=== PATIENT | male | born 1970 | race Caucasian/White ===

== ENCOUNTER 2016-09-23 15:09 | Emergency (ER) | payer MEDICARE, BC ==
[2016-09-23] MEDS ORDERED: ORPHENADRINE CITRATE 60MG/2ML VIAL IM ONE (15:55)
[2016-09-23] MEDS ORDERED: HYDROCODONE/APAP 7.5/325MG TABLET PO ONE (15:55)
[2016-09-23] MEDS ORDERED: PROMETHAZINE HCL 25 MG/ML VIAL IM ONE (15:55)
--- NOTE | 2016-09-23 16:00 | Emergency Department Record ---
History of Present Illness - General Chief Complaint: Headache Migraine Stated Complaint: HEADACHE Time Seen by Provider: 09/23/16 15:49 Source: Patient Mode of Arrival: Ambulatory Limitations: No limitations - History of Present Illness Initial Comments: 46 yo male presents with a migraine for 5 days. He has a history of similar migraines. He denies trauma, fever or new or different symptoms from his typical. He has some mild light sensitivity and nausea. He ran out of his [place]. Dr Ramirez is his PCP. MD Complaint: "Migraine" Onset/Timin -: Days(s) Onset Description: Gradual Location: Frontal Severity: Severe Severity scale (1-10): 9 Quality: Similar to previous headaches Consistency: Constant Improves With: Nothing Worsens With: Light Context: Other Associated Symptoms: Photophobia Treatments Prior to Arrival: None - Related Data Home Medications Medication Instructions Recorded Confirmed Last Taken Hydrocodone/Acetaminophen 10 mg PO ASDIR 06/30/16 09/20/16 09/20/16 [Hydrocodon-Acetaminophn 10-325] Morphine Sulfate [Morphine Sulfate 60 mg PO ASDIR 06/30/16 09/20/16 09/20/16 ER] Levothyroxine Sodium [Synthroid] 100 mcg PO DAILY 07/16/16 09/20/16 09/20/16 Lorazepam [Ativan] 1 mg PO BID 07/16/16 09/20/16 09/20/16 Quetiapine Fumarate [Seroquel Xr] 200 mg PO QHS PRN 07/16/16 09/20/16 09/20/16 Allergies Allergy/AdvReac Type Severity Reaction Status Date / Time diphenhydramine HCl Allergy Severe HYPERSENSIT Verified 09/20/16 23:31 [From Benadryl] IVITY amitriptyline HCl Allergy Intermediate HYPERSENSIT Verified 09/20/16 23:31 [From Elavil] IVITY ketorolac tromethamine Allergy Intermediate sweats Verified 09/20/16 23:31 [From Toradol] nortriptyline HCl Allergy Intermediate sweats Verified 09/20/16 23:31 [From Pamelor] Travel Screening - Travel/Exposure Within Last 30 Days Have you traveled within the last 30 days?: No Review of Systems Constitutional: Denies: Chills, Fever, Malaise, Weakness Eyes: Reports: Photophobia. Denies: Eye discharge, Eye pain, Vision change ENT: Denies: Congestion, Throat pain Respiratory: Denies: Cough, Dyspnea, Hemoptysis, Stridor, Wheezes Cardiovascular: Denies: Chest pain, Palpitations, Syncope Endocrine: Denies: Fatigue Gastrointestinal: Reports: Nausea, Vomiting. Denies: Abdominal pain, Diarrhea Genitourinary: Denies: Dysuria, Frequency, Hematuria Musculoskeletal: Reports: Back pain. Denies: Arthralgia, Joint swelling, Myalgia Skin: Denies: Bruising, Change in color, Rash Neurological: Reports: Headache. Denies: Numbness, Paresthesias, Seizure, Tingling, Tremors, Vertigo, Weakness Psychiatric: Denies: Anxiety Hematological/Lymphatic: Denies: Blood Clots, Easy bleeding, Easy bruising, Swollen glands Past Medical History - SOCIAL HISTORY Smoking Status: Current every day smoker Alcohol Use: None Drug Use: None - RESPIRATORY Hx Respiratory Disorders: Yes Hx Sleep Apnea: Yes Hx of CPAP: Yes - CARDIOVASCULAR Hx Cardio Disorders: No - NEURO Hx Neuro Disorders: Yes Hx CVA: Yes (2003) Hx Headaches: Yes Hx TIA: Yes Comment:: Closed head injury in 1994 and one in 1992 - GI Hx GI Disorders: Yes Hx Nausea/Vomiting: Yes Hx Ulcer: Yes - Hx Genitourinary Disorders: Yes Hx Kidney Stones: Yes - ENDOCRINE Hx Endocrine Disorders: Yes Hx Diabetes: No Hx Thyroid Disease: Yes - MUSCULOSKELETAL Hx Musculoskeletal Disorders: Yes Hx Arthritis: Yes Hx Back Injury: Yes - PSYCH Hx Psych Problems: Yes Hx Anxiety: Yes Hx Depression: Yes Hx Suicide Attempt: Yes - HEMATOLOGY/ONCOLOGY Hx Hematology/Oncology Disorders: Yes Hx Cancer: Yes (Lymphoma) Hx Chemotherapy: No Hx Radiation Therapy: Yes Comment:: lymphoma hx 2005 Family Medical History Any Significant Family History?: Yes Hx Alcohol Use: Father Hx Anxiety: Brother/Sister Hx Cancer: Father Hx Dementia: Grandparents Hx Depression: Brother/Sister, Grandparents Hx Diabetes: Grandparents Hx Heart Disease: Father Physical Exam - General General Appearance: Alert, Oriented x3, Cooperative, No acute distress Limitations: No limitations - Head Head exam: Atraumatic, Normocephalic, Normal inspection - Eye Eye exam: Normal appearance, PERRL, EOMI. negative: Conjunctival injection, Nystagmus, Periorbital swelling, Scleral icterus - ENT ENT exam: Normal exam Ear exam: Normal external inspection Nasal Exam: Normal inspection Mouth exam: Normal external inspection Teeth exam: Normal inspection Throat exam: Normal inspection - Neck Neck exam: Normal inspection, Full ROM. negative: Tenderness - Respiratory Respiratory exam: Normal lung sounds bilaterally. negative: Respiratory distress - Cardiovascular Cardiovascular Exam: Regular rate, Normal rhythm, Normal heart sounds - GI/Abdominal GI/Abdominal exam: Soft. negative: Guarding, Rebound, Rigid, Tenderness - Rectal Rectal exam: Deferred - exam: Deferred - Extremities Extremities exam: Normal inspection, Full ROM, Normal capillary refill. negative: Pedal edema, Tenderness - Back Back exam: Reports: Normal inspection, Full ROM. Denies: Muscle spasm, Rash noted, Tenderness - Neurological Neurological exam: Alert, CN II-XII intact, Normal gait, Oriented X3. negative : Altered, Motor sensory deficit - Psychiatric Psychiatric exam: Normal affect, Normal mood. negative: Agitated, Anxious - Skin Skin exam: Dry, Intact, Normal color, Warm Course Vital Signs 09/23/16 15:28 Temperature 98.1 F Pulse Rate 116 H Respiratory 16 Rate Blood Pressure 120/88 Pulse Ox 99 Disposition Disposition: Discharge Clinical Impression: Migraine Qualifiers: Migraine type: unspecified Status migrainosus presence: without status migrainosus Intractability: not intractable Qualified Code(s): G43.909 - Migraine, unspecified, not intractable, without status migrainosus Disposition: Home, Self-Care Condition: (1) Good Instructions: Migraine Headache (ED) Additional Instructions: Follow up with your doctor first of the week Rest and stay well hydrated Your [place] can be discussed with your doctor Forms: Patient Portal Access Time of Disposition: 16:00
== END 2016-09-23 16:30 | disposition home or self-care (01) ==
LOC: ER 15:09
DX: G43.909 Migraine, unspecified, not intractable, without status migrainosus (principal); R11.2 Nausea with vomiting, unspecified; H53.149 Visual discomfort, unspecified
CPT/HCPCS: 96372; 99283; J2360; J2550

== ENCOUNTER 2016-09-25 21:03 | Emergency (ER) | payer MEDICARE, BC ==
--- NOTE | 2016-09-25 21:24 | Emergency Department Record ---
History of Present Illness - General Stated Complaint: HEADACHE Time Seen by Provider: 09/25/16 21:19 Source: Patient Mode of Arrival: Ambulatory Limitations: No limitations - History of Present Illness Initial Comments: 46 yo male presents to ED with a CC of recurrent headache symptoms, denies fevers, chills, or recent illness. Patient denies neck stiffness symptoms or recent trauma/injury. Patient reports that his headache symptoms are similar to previous headaches. MD Complaint: Headache Onset/Timin -: Days(s) Onset Description: Gradual Location: Diffuse Severity: Severe Quality: Aching Consistency: Constant Improves With: Nothing Worsens With: None Treatments Prior to Arrival: Prescription analgesic - Related Data Home Medications Medication Instructions Recorded Confirmed Last Taken Hydrocodone/Acetaminophen 10 mg PO ASDIR 06/30/16 09/20/16 09/20/16 [Hydrocodon-Acetaminophn 10-325] Morphine Sulfate [Morphine Sulfate 60 mg PO ASDIR 06/30/16 09/20/16 09/20/16 ER] Levothyroxine Sodium [Synthroid] 100 mcg PO DAILY 07/16/16 09/20/16 09/20/16 Lorazepam [Ativan] 1 mg PO BID 07/16/16 09/20/16 09/20/16 Quetiapine Fumarate [Seroquel Xr] 200 mg PO QHS PRN 07/16/16 09/20/16 09/20/16 Allergies Allergy/AdvReac Type Severity Reaction Status Date / Time diphenhydramine HCl Allergy Severe HYPERSENSIT Verified 09/20/16 23:31 [From Benadryl] IVITY amitriptyline HCl Allergy Intermediate HYPERSENSIT Verified 09/20/16 23:31 [From Elavil] IVITY ketorolac tromethamine Allergy Intermediate sweats Verified 09/20/16 23:31 [From Toradol] nortriptyline HCl Allergy Intermediate sweats Verified 09/20/16 23:31 [From Pamelor] Review of Systems Constitutional: Denies: Chills, Fever, Malaise, Night sweats Eyes: Denies: Eye discharge, Eye pain ENT: Denies: Congestion, Ear pain Respiratory: Denies: Cough, Dyspnea Cardiovascular: Denies: Chest pain, Dyspnea on exertion Endocrine: Denies: Fatigue, Heat or cold intolerance Gastrointestinal: Reports: Abdominal pain (chronic per patient, undergoing colonoscopy 10/11 for his symptoms). Denies: Nausea, Vomiting Genitourinary: Denies: Incontinence, Retention Musculoskeletal: Denies: Arthralgia, Back pain, Gout, Joint swelling Skin: Denies: Bruising, Change in color Neurological: Reports: Headache. Denies: Abnormal gait, Confusion, Seizure Psychiatric: Denies: Anxiety Hematological/Lymphatic: Denies: Anemia, Blood Clots Past Medical History - SOCIAL HISTORY Smoking Status: Current every day smoker Drug Use: None - RESPIRATORY Hx Respiratory Disorders: Yes Hx Sleep Apnea: Yes Hx of CPAP: Yes - CARDIOVASCULAR Hx Cardio Disorders: No - NEURO Hx Neuro Disorders: Yes Hx CVA: Yes (2003) Hx Headaches: Yes Hx TIA: Yes Comment:: Closed head injury in 1994 and one in 1992 - GI Hx GI Disorders: Yes Hx Nausea/Vomiting: Yes Hx Ulcer: Yes - Hx Genitourinary Disorders: Yes Hx Kidney Stones: Yes - ENDOCRINE Hx Endocrine Disorders: Yes Hx Diabetes: No Hx Thyroid Disease: Yes - MUSCULOSKELETAL Hx Musculoskeletal Disorders: Yes Hx Arthritis: Yes Hx Back Injury: Yes - PSYCH Hx Psych Problems: Yes Hx Anxiety: Yes Hx Depression: Yes Hx Suicide Attempt: Yes - HEMATOLOGY/ONCOLOGY Hx Hematology/Oncology Disorders: Yes Hx Cancer: Yes (Lymphoma) Hx Chemotherapy: No Hx Radiation Therapy: Yes Comment:: lymphoma hx 2004 Family Medical History Hx Alcohol Use: Father Hx Anxiety: Brother/Sister Hx Cancer: Father Hx Dementia: Grandparents Hx Depression: Brother/Sister, Grandparents Hx Diabetes: Grandparents Hx Heart Disease: Father Physical Exam - General General Appearance: Alert, Oriented x3, Cooperative, No acute distress, Other ( texting on his phone prior to examination, well appearing) Limitations: No limitations - Head Head exam: Atraumatic, Normocephalic, Normal inspection Head exam detail: negative: Abrasion, Contusion, Menon's sign, General tenderness, Hematoma, Laceration - Eye Eye exam: Normal appearance. negative: Conjunctival injection, Periorbital swelling, Periorbital tenderness, Scleral icterus - ENT Ear exam: negative: Auricular hematoma, Auricular trauma Nasal Exam: negative: Active bleeding, Discharge, Dried blood, Foreign body Mouth exam: negative: Drooling, Laceration, Muffled voice, Tongue elevation - Neck Neck exam: Normal inspection. negative: Meningismus, Tenderness - Respiratory Respiratory exam: Normal lung sounds bilaterally. negative: Respiratory distress, Rhonchi, Stridor, Wheezes - Cardiovascular Cardiovascular Exam: Regular rate, Normal rhythm, Normal heart sounds - GI/Abdominal GI/Abdominal exam: Soft, Tenderness (Mild, diffuse TTP on examination, no rebound or guarding present). negative: Rebound, Rigid - Rectal Rectal exam: Deferred - exam: Deferred - Extremities Extremities exam: Normal inspection. negative: Pedal edema, Tenderness - Back Back exam: Reports: Normal inspection. Denies: CVA tenderness (R), CVA tenderness (L) - Neurological Neurological exam: Alert, Normal gait, Oriented X3 - Psychiatric Psychiatric exam: Normal affect, Normal mood - Skin Skin exam: Normal color. negative: Abrasion Type of lesion: negative: abrasion Course - Reevaluation(s) Reevaluation #1: 09/25/16 21:20 Patient seen and examined, reports that only Dilaudid helps for his migraines. Ofirmiv has helped previously, but patient states it did not "work" for his headaches and does not want this treatment tonight. Patient was informed that narcotic pain medication is not indicated for his headache symptoms and may result in rebound headaches. Patient declined any further medications at this time and would like to leave without further treatment. 09/25/16 21:23 Disposition Disposition: Discharge Clinical Impression: Headache Qualifiers: Headache type: unspecified Headache chronicity pattern: acute headache Intractability: not intractable Qualified Code(s): R51 - Headache Disposition: Home, Self-Care Condition: (2) Stable Instructions: Acute Headache (ED) Additional Instructions: Return to ED if your symptoms worsen or if you have any concerns. Follow-up with your family doctor tomorrow without fail. Time of Disposition: 21:22
== END 2016-09-25 22:01 | disposition home or self-care (01) ==
LOC: ER 21:03
DX: R51 Headache (principal)
CPT/HCPCS: 99282

== ENCOUNTER 2016-11-14 11:49 | Emergency (ER) | payer MEDICARE, BC ==
--- NOTE | 2016-11-14 12:14 | Emergency Department Record ---
History of Present Illness - General Chief complaint: Cold Stated complaint: BAD COLD Time Seen by Provider: 11/14/16 12:00 Source: Patient, RN notes reviewed Mode of Arrival: Ambulatory - History of Present Illness Initial comments: congestion and cough and he has a furuncle on the [place] one that healed on the right shoulder and behind the left ear. He also complains of a migraine. MD complaint: Sore throat Onset/Timin -: Days(s) Location: Nose, Other Consistency: Constant Improves with: None Worsens with: None Associated Symptoms: Cough, Fever, Sore throat, Other - Related Data Home Medications Medication Instructions Recorded Confirmed Last Taken Hydrocodone/Acetaminophen 10 mg PO ASDIR 06/30/16 11/14/16 09/20/16 [Hydrocodon-Acetaminophn 10-325] Morphine Sulfate [Morphine Sulfate 60 mg PO ASDIR 06/30/16 11/14/16 11/14/16 ER] Levothyroxine Sodium [Synthroid] 100 mcg PO DAILY 07/16/16 11/14/16 09/20/16 Lorazepam [Ativan] 1 mg PO BID 07/16/16 11/14/16 09/20/16 Quetiapine Fumarate [Seroquel Xr] 200 mg PO QHS PRN 07/16/16 11/14/16 09/20/16 Previous Rx's Medication Instructions Recorded Doxycycline Hyclate [Doxycycline] 100 mg PO BID #20 cap 11/14/16 Naproxen [Naprosyn] 250 mg PO Q12H #20 tablet 11/14/16 Allergies Allergy/AdvReac Type Severity Reaction Status Date / Time diphenhydramine HCl Allergy Severe HYPERSENSIT Verified 11/14/16 12:01 [From Benadryl] IVITY amitriptyline HCl Allergy Intermediate HYPERSENSIT Verified 11/14/16 12:01 [From Elavil] IVITY ketorolac tromethamine Allergy Intermediate sweats Verified 11/14/16 12:01 [From Toradol] nortriptyline HCl Allergy Intermediate sweats Verified 11/14/16 12:01 [From Pamelor] Travel Screening - Travel/Exposure Within Last 30 Days Have you traveled within the last 30 days?: No Review of Systems Reviewed: No additional complaints except as noted below Constitutional: Reports: As per HPI. Denies: Chills, Fever, Malaise, Night sweats, Weakness, Weight change Eyes: Reports: As per HPI. Denies: Eye discharge, Eye pain, Photophobia, Vision change ENT: Reports: As per HPI, Congestion, Throat pain. Denies: Dental pain, Ear pain, Epistaxis, Hearing loss Respiratory: Reports: As per HPI, Cough. Denies: Dyspnea, Hemoptysis, Stridor, Wheezes Cardiovascular: Reports: As per HPI. Denies: Arrhythmia, Chest pain, Dyspnea on exertion, Edema, Murmurs, Orthopnea, Palpitations, Paroxysmal nocturnal dyspnea, Rheumatic Fever, Syncope Endocrine: Reports: As per HPI. Denies: Fatigue, Heat or cold intolerance, Polydipsia, Polyuria Gastrointestinal: Reports: As per HPI. Denies: Abdominal pain, Constipation, Diarrhea, Hematemesis, Hematochezia, Melena, Nausea, Vomiting Genitourinary: Reports: As per HPI. Denies: Dysuria, Frequency, Hematuria, Incontinence, Retention, Testicular pain, Testicular mass, Urgency Musculoskeletal: Reports: As per HPI. Denies: Arthralgia, Back pain, Gout, Joint swelling, Myalgia, Neck pain Skin: Reports: As per HPI. Denies: Bruising, Change in color, Change in hair/ nails, Lesions, Pruritus, Rash Neurological: Reports: As per HPI, Headache. Denies: Abnormal gait, Confusion, Numbness, Paresthesias, Seizure, Tingling, Tremors, Vertigo, Weakness Psychiatric: Reports: As per HPI. Denies: Anxiety, Auditory hallucinations, Depression, Homicidal thoughts, Suicidal thoughts, Visual hallucinations Hematological/Lymphatic: Reports: As per HPI. Denies: Anemia, Blood Clots, Easy bleeding, Easy bruising, Swollen glands Past Medical History - SOCIAL HISTORY Smoking Status: Current every day smoker Alcohol Use: None Drug Use: None - RESPIRATORY Hx Respiratory Disorders: Yes Hx Sleep Apnea: Yes Hx of CPAP: Yes - CARDIOVASCULAR Hx Cardio Disorders: No - NEURO Hx Neuro Disorders: Yes Hx CVA: Yes (2003) Hx Headaches: Yes Hx TIA: Yes Comment:: Closed head injury in 1994 and one in 1992 - GI Hx GI Disorders: Yes Hx Nausea/Vomiting: Yes Hx Ulcer: Yes - Hx Genitourinary Disorders: Yes Hx Kidney Stones: Yes - ENDOCRINE Hx Endocrine Disorders: Yes Hx Diabetes: No Hx Thyroid Disease: Yes - MUSCULOSKELETAL Hx Musculoskeletal Disorders: Yes Hx Arthritis: Yes Hx Back Injury: Yes - PSYCH Hx Psych Problems: Yes Hx Anxiety: Yes Hx Depression: Yes Hx Suicide Attempt: Yes - HEMATOLOGY/ONCOLOGY Hx Hematology/Oncology Disorders: Yes Hx Cancer: Yes (Lymphoma) Hx Chemotherapy: No Hx Radiation Therapy: Yes Comment:: lymphoma hx 2005 Family Medical History Any Significant Family History?: Yes Hx Alcohol Use: Father Hx Anxiety: Brother/Sister Hx Cancer: Father Hx Dementia: Grandparents Hx Depression: Brother/Sister, Grandparents Hx Diabetes: Grandparents Hx Heart Disease: Father Physical Exam - General General Appearance: Alert, Oriented x3, Cooperative, No acute distress - Head Head exam: Normal inspection - Eye Eye exam: Normal appearance, PERRL Pupils: Normal accommodation - ENT ENT exam: Normal exam, Mucous membranes moist, Normal external ear exam, Normal orophraynx, TM's normal bilaterally Ear exam: Normal external inspection. negative: External canal tenderness Nasal Exam: Normal inspection. negative: Discharge, Sinus tenderness Mouth exam: Normal external inspection, Tongue normal Teeth exam: Normal inspection. negative: Dental caries Throat exam: Normal inspection. negative: Tonsillar erythema, Tonsillar exudate - Neck Neck exam: Normal inspection, Full ROM. negative: Tenderness - Respiratory Respiratory exam: Normal lung sounds bilaterally. negative: Respiratory distress - Cardiovascular Cardiovascular Exam: Regular rate, Normal rhythm, Normal heart sounds - GI/Abdominal GI/Abdominal exam: Soft, Normal bowel sounds. negative: Tenderness - Rectal Rectal exam: Deferred - exam: Deferred - Extremities Extremities exam: Normal inspection, Full ROM, Normal capillary refill. negative: Tenderness - Back Back exam: Reports: Normal inspection, Full ROM. Denies: Muscle spasm, Rash noted, Tenderness - Neurological Neurological exam: Alert, Normal gait, Oriented X3, Reflexes normal - Psychiatric Psychiatric exam: Normal affect, Normal mood - Skin Skin exam: Dry, Intact, Normal color, Warm, Other (red furuncle on chin and not fluctuant) Course Vital Signs 11/14/16 11:55 Temperature 97.5 F L Pulse Rate 109 H Respiratory 24 Rate Blood Pressure 157/89 Pulse Ox 97 Disposition Clinical Impression: Bronchitis, Furuncle Headache Qualifiers: Headache type: unspecified Headache chronicity pattern: acute headache Intractability: not intractable Qualified Code(s): R51 - Headache Instructions: Acute Bronchitis (ED) Additional Instructions: follow up with Dr. Ashley love [facility]. Prescriptions: Doxycycline Hyclate [Doxycycline] 100 mg PO BID #20 cap Naproxen [Naprosyn] 250 mg PO Q12H #20 tablet Forms: Patient Portal Access Time of Disposition: 12:18
[2016-11-14 12:39] LABS: INFLUENZA A NEGATIVE (NEGATIVE); INFLUENZA B NEGATIVE (NEGATIVE); STREP A SCREEN NEGATIVE (NEGATIVE)
== END 2016-11-14 12:48 | disposition home or self-care (01) ==
LOC: ER 11:49
DX: J20.9 Acute bronchitis, unspecified (principal); L02.02 Furuncle of face; R51 Headache; F17.210 Nicotine dependence, cigarettes, uncomplicated
CPT/HCPCS: 87400; 87880; 99283

== ENCOUNTER 2016-12-30 13:44 | Emergency (ER) | payer MEDICARE, BC ==
--- NOTE | 2016-12-30 16:38 | Emergency Department Record ---
History of Present Illness - General Chief complaint: Extremity Problem Stated complaint: PAIN IN LEFT ARM/SWOLLEN Time Seen by Provider: 12/30/16 16:27 Source: Patient, RN notes reviewed Mode of Arrival: Ambulatory - History of Present Illness Initial comments: left upper arm red spot started 2 days ago and arm and skin painful and now he has redness down the arm on the lateral side of left arm . No vesicles and temp or 99 and two norco this am and MS contin [address] Ramirez is his primary Dr. Onset/Timin -: Days(s) Location: Left Severity scale (1-10): 9 Quality: Aching Consistency: Constant Improves with: Rest - Related Data Home Medications Medication Instructions Recorded Confirmed Last Taken Hydrocodone/Acetaminophen 10 mg PO ASDIR 06/30/16 12/30/16 1 Day Ago [Hydrocodon-Acetaminophn 10-325] Morphine Sulfate [Morphine Sulfate 60 mg PO ASDIR 06/30/16 12/30/16 1 Day Ago ER] Levothyroxine Sodium [Synthroid] 100 mcg PO DAILY 07/16/16 12/30/16 1 Day Ago Lorazepam [Ativan] 1 mg PO BID 07/16/16 12/30/16 1 Day Ago Quetiapine Fumarate [Seroquel Xr] 200 mg PO QHS PRN 07/16/16 12/30/16 1 Day Ago Previous Rx's Medication Instructions Recorded Naproxen [Naprosyn] 250 mg PO Q12H #20 tablet 11/14/16 Cephalexin [Keflex] 500 mg PO QID #40 cap 12/30/16 Sulfamethoxazole/Trimethoprim 1 each PO BID #20 tablet 12/30/16 [Bactrim Ds Tablet] Allergies Allergy/AdvReac Type Severity Reaction Status Date / Time diphenhydramine HCl Allergy Severe HYPERSENSIT Verified 12/30/16 14:29 [From Benadryl] IVITY amitriptyline HCl Allergy Intermediate HYPERSENSIT Verified 12/30/16 14:29 [From Elavil] IVITY ketorolac tromethamine Allergy Intermediate sweats Verified 12/30/16 14:29 [From Toradol] nortriptyline HCl Allergy Intermediate sweats Verified 12/30/16 14:29 [From Pamelor] Travel Screening - Travel/Exposure Within Last 30 Days Have you traveled within the last 30 days?: No - Travel/Exposure Within Last Year Have you traveled outside the [place] in the last year?: No - Additonal Travel Details Have you been exposed to anyone with a communicable illness?: No - Travel Symptoms Symptom Screening: None Review of Systems Reviewed: No additional complaints except as noted below Constitutional: Reports: As per HPI. Denies: Chills, Fever, Malaise, Night sweats, Weakness, Weight change Eyes: Reports: As per HPI. Denies: Eye discharge, Eye pain, Photophobia, Vision change ENT: Reports: As per HPI. Denies: Congestion, Dental pain, Ear pain, Epistaxis , Hearing loss, Throat pain Respiratory: Reports: As per HPI. Denies: Cough, Dyspnea, Hemoptysis, Stridor, Wheezes Cardiovascular: Reports: As per HPI. Denies: Arrhythmia, Chest pain, Dyspnea on exertion, Edema, Murmurs, Orthopnea, Palpitations, Paroxysmal nocturnal dyspnea, Rheumatic Fever, Syncope Endocrine: Reports: As per HPI. Denies: Fatigue, Heat or cold intolerance, Polydipsia, Polyuria Gastrointestinal: Reports: As per HPI. Denies: Abdominal pain, Constipation, Diarrhea, Hematemesis, Hematochezia, Melena, Nausea, Vomiting Genitourinary: Reports: As per HPI. Denies: Dysuria, Frequency, Hematuria, Incontinence, Retention, Testicular pain, Testicular mass, Urgency Musculoskeletal: Reports: As per HPI. Denies: Arthralgia, Back pain, Gout, Joint swelling, Myalgia, Neck pain Skin: Reports: As per HPI, Rash. Denies: Bruising, Change in color, Change in hair/nails, Lesions, Pruritus Neurological: Reports: As per HPI. Denies: Abnormal gait, Confusion, Headache, Numbness, Paresthesias, Seizure, Tingling, Tremors, Vertigo, Weakness Psychiatric: Reports: As per HPI. Denies: Anxiety, Auditory hallucinations, Depression, Homicidal thoughts, Suicidal thoughts, Visual hallucinations Hematological/Lymphatic: Reports: As per HPI. Denies: Anemia, Blood Clots, Easy bleeding, Easy bruising, Swollen glands Past Medical History - SOCIAL HISTORY Smoking Status: Current every day smoker Alcohol Use: None Drug Use: None - RESPIRATORY Hx Respiratory Disorders: Yes Hx Sleep Apnea: Yes Hx of CPAP: Yes - CARDIOVASCULAR Hx Cardio Disorders: No - NEURO Hx Neuro Disorders: Yes Hx CVA: Yes (2003) Hx Headaches: Yes Hx TIA: Yes Comment:: Closed head injury in 1994 and one in 1992 - GI Hx GI Disorders: Yes Hx Nausea/Vomiting: Yes Hx Ulcer: Yes - Hx Genitourinary Disorders: Yes Hx Kidney Stones: Yes - ENDOCRINE Hx Endocrine Disorders: Yes Hx Diabetes: No Hx Thyroid Disease: Yes - MUSCULOSKELETAL Hx Musculoskeletal Disorders: Yes Hx Arthritis: Yes Hx Back Injury: Yes - PSYCH Hx Psych Problems: Yes Hx Anxiety: Yes Hx Depression: Yes Hx Suicide Attempt: Yes - HEMATOLOGY/ONCOLOGY Hx Hematology/Oncology Disorders: Yes Hx Cancer: Yes (Lymphoma) Hx Chemotherapy: No Hx Radiation Therapy: Yes Comment:: lymphoma hx 2004 Family Medical History Any Significant Family History?: Yes Hx Alcohol Use: Father Hx Anxiety: Brother/Sister Hx Cancer: Father Hx Dementia: Grandparents Hx Depression: Brother/Sister, Grandparents Hx Diabetes: Grandparents Hx Heart Disease: Father Physical Exam - General General Appearance: Alert, Oriented x3, Cooperative, Mild distress - Head Head exam: Normal inspection - Eye Eye exam: Normal appearance, PERRL Pupils: Normal accommodation - ENT ENT exam: Normal exam, Mucous membranes moist, Normal external ear exam, Normal orophraynx, TM's normal bilaterally Ear exam: Normal external inspection. negative: External canal tenderness Nasal Exam: Normal inspection. negative: Discharge, Sinus tenderness Mouth exam: Normal external inspection, Tongue normal Teeth exam: Normal inspection. negative: Dental caries Throat exam: Normal inspection. negative: Tonsillar erythema, Tonsillar exudate - Neck Neck exam: Normal inspection, Full ROM. negative: Tenderness - Respiratory Respiratory exam: Normal lung sounds bilaterally. negative: Respiratory distress - Cardiovascular Cardiovascular Exam: Regular rate, Normal rhythm, Normal heart sounds - GI/Abdominal GI/Abdominal exam: Soft, Normal bowel sounds. negative: Tenderness - Rectal Rectal exam: Deferred - exam: Deferred - Extremities Extremities exam: Normal inspection, Full ROM, Normal capillary refill. negative: Tenderness - Back Back exam: Reports: Normal inspection, Full ROM. Denies: Muscle spasm, Rash noted, Tenderness - Neurological Neurological exam: Alert, Normal gait, Oriented X3, Reflexes normal - Psychiatric Psychiatric exam: Normal affect, Normal mood - Skin Skin exam: Dry, Intact, Normal color, Warm Course Vital Signs 12/30/16 14:24 Temperature 99.0 F Pulse Rate 101 H Respiratory 18 Rate Blood Pressure 111/75 Pulse Ox 97 Medical Decision Making - Lab Data Result diagrams: 12/30/16 16:00 12/30/16 16:00 Disposition Clinical Impression: Cellulitis Qualifiers: Site of cellulitis: extremity Site of cellulitis of extremity: upper extremity Laterality: left Qualified Code(s): L03.114 - Cellulitis of left upper limb Disposition: Home, Self-Care Condition: (1) Good Instructions: Cellulitis (ED) Additional Instructions: follow up with Dr. Ramirez in 4 days as scheduled and return to ED if worse Prescriptions: Sulfamethoxazole/Trimethoprim [Bactrim Ds Tablet] 1 each PO BID #20 tablet Cephalexin [Keflex] 500 mg PO QID #40 cap Forms: Patient Portal Access Time of Disposition: 17:44
[2016-12-30] MEDS: 0.9 % SODIUM CHLORIDE 1000ML 1,000 ML IV PRN ×2 (16:45→17:22)
[2016-12-30 17:06] LABS: BASO % 0.4 % (0-6); EOS % 3.4 % (0-6); GRAN % 66.4 % (47-80); HEMOGLOBIN 13.5 gm/dl (14.0-18.0); LYMPH % 20.8 % (16-45); MEAN CELL VOLUME 91.1 fl (81-97); MEAN CORPUSCULAR HGB CONC 32.1 g/dl (32-36); MEAN PLATELET VOLUME 8.7 fl (7.4-10.4); PLATELET COUNT 343 K/uL (130-400); RED BLOOD COUNT 4.61 M/uL (4.40-5.70); RED CELL DISTRIBUTION WIDTH 14.7 % (11.5-14.5); WHITE BLOOD COUNT W/O DIFF 10.4 K/uL (4.2-12.2)
[2016-12-30 17:14] LABS: MEAN CORPUSCULAR HEMOGLOBIN 29.2 pg (27-33)
[2016-12-30 17:16] LABS: LACTIC ACID 1.4 mmol/L (0.7-2.1)
[2016-12-30] MEDS ORDERED: CEFTRIAXONE 1 GRAM VIAL IM ONE (17:36)
[2016-12-30] MEDS ORDERED: CEFTRIAXONE SODIUM 1 GM in 0.9 % SODIUM CHLORIDE 100ML 100 ML IVPB ONE (17:40)
[2016-12-30] MEDS ORDERED: TMP/SMZ 160MG/800MG TAB PO ONE (17:41)
[2016-12-30] MEDS ORDERED: HYDROCODONE/APAP 7.5/325MG TABLET PO ONE (17:41)
[2016-12-30 18:15] LABS: BLOOD UREA NITROGEN 6 mg/dL (9-20); CREATININE 0.7 mg/dL (0.66-1.25); EST GLOMERULAR FILTRATION RATE > 60 ml/min; GLUCOSE,RANDOM 94 mg/dL (70-110)
== END 2016-12-30 18:50 | disposition home or self-care (01) ==
LOC: ER 13:44
DX: L03.114 Cellulitis of left upper limb (principal)
CPT/HCPCS: 80048; 83605; 85025; 96374; 99284

== ENCOUNTER 2017-04-12 21:12 | Emergency (ER) | payer BC, MEDICARE ==
[2017-04-12] MEDS ORDERED: HYOSCYAMINE SULFATE ODT 0.125 MG TAB.SUBL SL ONE (21:27)
[2017-04-12] MEDS ORDERED: 0.9 % SODIUM CHLORIDE 1000ML 1,000 ML IV SCH (21:30)
--- NOTE | 2017-04-12 21:32 | Emergency Department Record ---
History of Present Illness - General Chief Complaint: Abdominal Pain Stated Complaint: ABD PAIN Time Seen by Provider: 04/12/17 21:20 Source: Patient Mode of Arrival: Ambulatory Limitations: No limitations - History of Present Illness Initial Comments: 46 yo male presents to ED with a CC of diffuse abdominal pain, nausea, vomiting , and loose stools for the past 48 hours. Patient denies fevers, chills, cough symptoms. Patient denies urinary symptoms. Patient does report a history of pancreatitis, and is s/p cholecystectomy. MD Complaint: Abdominal pain Onset/Timin -: Days(s) Location: Diffuse Radiation: None Migration to: No migration Severity: Moderate Quality: Aching Consistency: Constant Improves With: Nothing Worsens With: Nothing Associated Symptoms: Diarrhea, Nausea, Vomiting - Related Data Home Medications Medication Instructions Recorded Confirmed Last Taken Hydrocodone/Acetaminophen 10 mg PO ASDIR 06/30/16 04/12/17 1 Day Ago [Hydrocodon-Acetaminophn 10-325] ~12/29/16 Morphine Sulfate [Morphine Sulfate 60 mg PO ASDIR 06/30/16 04/12/17 1 Day Ago ER] ~12/29/16 Levothyroxine Sodium [Synthroid] 100 mcg PO DAILY 07/16/16 04/12/17 1 Day Ago ~12/29/16 Lorazepam [Ativan] 1 mg PO BID 07/16/16 04/12/17 1 Day Ago ~12/29/16 Quetiapine Fumarate [Seroquel Xr] 200 mg PO QHS PRN 07/16/16 04/12/17 1 Day Ago ~12/29/16 Previous Rx's Medication Instructions Recorded Hyoscyamine Sulfate [Levsin-Sl] 0.25 mg SL Q8H PRN #20 tab.subl 04/12/17 Allergies Allergy/AdvReac Type Severity Reaction Status Date / Time diphenhydramine HCl Allergy Severe HYPERSENSIT Verified 04/12/17 21:24 [From Benadryl] IVITY amitriptyline HCl Allergy Intermediate HYPERSENSIT Verified 04/12/17 21:24 [From Elavil] IVITY ketorolac tromethamine Allergy Intermediate sweats Verified 04/12/17 21:24 [From Toradol] nortriptyline HCl Allergy Intermediate sweats Verified 04/12/17 21:24 [From Pamelor] Review of Systems Constitutional: Denies: Chills, Fever, Malaise, Night sweats Eyes: Denies: Eye discharge, Eye pain ENT: Denies: Congestion, Ear pain Respiratory: Denies: Cough, Dyspnea Cardiovascular: Denies: Chest pain, Dyspnea on exertion Endocrine: Denies: Fatigue, Heat or cold intolerance Gastrointestinal: Reports: Abdominal pain, Diarrhea, Nausea, Vomiting Genitourinary: Denies: Incontinence, Retention, Testicular pain Musculoskeletal: Denies: Arthralgia, Back pain, Gout, Joint swelling Skin: Denies: Bruising, Change in color Neurological: Denies: Abnormal gait, Confusion, Headache, Seizure Psychiatric: Denies: Anxiety Hematological/Lymphatic: Denies: Anemia, Blood Clots Past Medical History - SOCIAL HISTORY Smoking Status: Current every day smoker Drug Use: None - RESPIRATORY Hx Respiratory Disorders: Yes Hx Sleep Apnea: Yes Hx of CPAP: Yes - CARDIOVASCULAR Hx Cardio Disorders: No - NEURO Hx Neuro Disorders: Yes Hx CVA: Yes (2003) Hx Headaches: Yes Hx TIA: Yes Comment:: Closed head injury in 1994 and one in 1992 - GI Hx GI Disorders: Yes Hx Nausea/Vomiting: Yes Hx Ulcer: Yes - Hx Genitourinary Disorders: Yes Hx Kidney Stones: Yes - ENDOCRINE Hx Endocrine Disorders: Yes Hx Diabetes: No Hx Thyroid Disease: Yes - MUSCULOSKELETAL Hx Musculoskeletal Disorders: Yes Hx Arthritis: Yes Hx Back Injury: Yes - PSYCH Hx Psych Problems: Yes Hx Anxiety: Yes Hx Depression: Yes Hx Suicide Attempt: Yes - HEMATOLOGY/ONCOLOGY Hx Hematology/Oncology Disorders: Yes Hx Cancer: Yes (Lymphoma) Hx Chemotherapy: No Hx Radiation Therapy: Yes Comment:: lymphoma hx 2004 Family Medical History Hx Alcohol Use: Father Hx Anxiety: Brother/Sister Hx Cancer: Father Hx Dementia: Grandparents Hx Depression: Brother/Sister, Grandparents Hx Diabetes: Grandparents Hx Heart Disease: Father Physical Exam - General General Appearance: Alert, Oriented x3, Cooperative, No acute distress Limitations: No limitations - Head Head exam: Atraumatic, Normocephalic, Normal inspection Head exam detail: negative: Abrasion, Contusion, Menon's sign, General tenderness, Hematoma, Laceration - Eye Eye exam: Normal appearance. negative: Conjunctival injection, Periorbital swelling, Periorbital tenderness, Scleral icterus - ENT Ear exam: negative: Auricular hematoma, Auricular trauma Nasal Exam: negative: Active bleeding, Discharge, Dried blood, Foreign body Mouth exam: negative: Drooling, Laceration, Muffled voice, Tongue elevation - Neck Neck exam: Normal inspection. negative: Meningismus, Tenderness - Respiratory Respiratory exam: Normal lung sounds bilaterally. negative: Rales, Respiratory distress, Rhonchi, Stridor - Cardiovascular Cardiovascular Exam: Normal rhythm, Normal heart sounds, Tachycardia - GI/Abdominal GI/Abdominal exam: Soft, Tenderness, Other (Mild, diffuse TTP on examination, no rebound or guarding are present on examination). negative: Rebound, Rigid - Rectal Rectal exam: Deferred - exam: Deferred - Extremities Extremities exam: Normal inspection. negative: Calf tenderness, Pedal edema, Tenderness - Back Back exam: Denies: CVA tenderness (R), CVA tenderness (L) - Neurological Neurological exam: Alert, Normal gait, Oriented X3 - Psychiatric Psychiatric exam: Flat affect, Normal mood - Skin Skin exam: Normal color. negative: Abrasion Type of lesion: negative: abrasion Course Vital Signs 04/12/17 21:20 Temperature 97.9 F Pulse Rate [ 120 H Pulse Ox Probe] Respiratory 23 Rate Blood Pressure 114/90 [Left Arm] Pulse Ox 99 - Reevaluation(s) Reevaluation #1: 04/12/17 21:31 Patient's previous records reviewed, CT imaging of the abdomen and pelvis 04/07 and 12/06 were grossly unremarkable for an acute process. TOday's abdominal examination is not consistent with a acute surgical process either. Will obtain laboratory studies, administer IVFs for elevated pulse, Levsin for his abdominal pain symptoms, and re-evaluate. Reevaluation #2: 04/12/17 22:08 Labs reviewed, WBC 16.5, labs are otherwise grossly unremarkable for an acute process. Due to elevated WBC, will perform imaging to exclude colitis as an etiology of the patient's abdominal pain symptoms. Reevaluation #3: 04/12/17 23:17 CT Abdomen and Pelvis: Diffuse small bowel wall thickening suggestive of enteritis. Patient was updated on all results and reports improvement in his symptoms following Levsin. Pulse improved to 92 from 120. Patient has not had any loose stools or vomiting episodes while in the ED, and the patient appears stable for discharge at this time. 04/12/17 23:21 Medical Decision Making - Lab Data Result diagrams: 04/12/17 21:30 04/12/17 21:30 Disposition Disposition: Discharge Clinical Impression: Abdominal pain Qualifiers: Abdominal location: generalized Qualified Code(s): R10.84 - Generalized abdominal pain Disposition: Home, Self-Care Condition: (2) Stable Instructions: Abdominal Pain (ED) Additional Instructions: Return to ED if your symptoms worsen or if you have any concerns. Levsin as directed. Follow-up with your family doctor in 3-5 days as directed. Prescriptions: Hyoscyamine Sulfate [Levsin-Sl] 0.25 mg SL Q8H PRN #20 tab.subl PRN Reason: Abdominal Pain Forms: Patient Portal Access Time of Disposition: 23:20 Quality - Quality Measures Quality Measures: N/A - Blood Pressure Screening Blood Pressure Classification: Hypertensive Reading Systolic Measurement: 143 Diastolic Measurement: 93 Screening for High Blood Pressure: < First Hypertensive BP, F/U Documented > [ G8950] First Hypertensive Follow-up Interventions: Referral to alternative/primary care provider.
[2017-04-12 21:43] LABS: BASO % 0.3 % (0-6); EOS % 0.6 % (0-6); HEMATOCRIT 48.5 % (42.0-52.0); HEMOGLOBIN 17.3 gm/dl (14.0-18.0); LYMPH % 18.3 % (16-45); MEAN CORPUSCULAR HEMOGLOBIN 30.7 pg (27-33); MEAN CORPUSCULAR HGB CONC 35.7 g/dl (32-36); MEAN PLATELET VOLUME 8.9 fl (7.4-10.4); MONO % 8.8 % (0-9); PLATELET COUNT 550 K/uL (130-400); RED BLOOD COUNT 5.64 M/uL (4.40-5.70); RED CELL DISTRIBUTION WIDTH 12.6 % (11.5-14.5); WHITE BLOOD COUNT W/O DIFF 16.5 K/uL (4.2-12.2)
[2017-04-12 21:51] LABS: ALB/GLOB RATIO 1.2 (1.1-1.8); ALBUMIN 5.1 gm/dL (3.5-5.0); ALKALINE PHOSPHATASE 102 U/L (38-126); ALT/SGPT 26 U/L (21-72); ANION GAP 15.9 (7-16); AST/SGOT 20 U/L (17-59); BILIRUBIN,TOTAL 1.12 mg/dL (0.2-1.3); BLOOD UREA NITROGEN 7 mg/dL (9-20); CARBON DIOXIDE 19.1 mmol/L (22-30); CREATININE 0.7 mg/dL (0.66-1.25); EST GLOMERULAR FILTRATION RATE > 60 ml/min; GLUCOSE,RANDOM 108 mg/dL (70-110); LIPASE 144 U/L (23-300); TOTAL PROTEIN 9.5 gm/dL (6.3-8.2)
[2017-04-12 22:00] LABS: URINE APPEARANCE CLEAR; URINE BILIRUBIN MODERATE (NEGATIVE); URINE BLOOD TRACE-I (NEGATIVE); URINE COLOR YELLOW; URINE GLUCOSE (UA) NEGATIVE (NEGATIVE); URINE KETONE TRACE (NEGATIVE); URINE LEUKOCYTE ESTERASE SMALL (NEGATIVE); URINE NITRITE NEGATIVE (NEGATIVE)
[2017-04-12 22:12] LABS: URINE MUCUS HEAVY; URINE WBC 16 - 20 (0-2/hpf)
[2017-04-12] MEDS ORDERED: DICYCLOMINE HCL 10 MG CAPSULE PO ONE (23:03)
--- NOTE | 2017-04-15 10:38 | CT SCAN REPORT ---
EXAM: CT OF THE ABDOMEN AND PELVIS WITH CONTRAST HISTORY: ABDOMINAL PAIN. TECHNIQUE: Sequential axial images were obtained from the diaphragms through the ischiorectal fossa after intravenous administration of 100 ml of Omnipaque 300 contrast administration. Sagittal and coronal reformatted images were performed. FINDINGS: The visualized lung bases are unremarkable. There is no infiltrate or pleural effusion. There is a 2.5 cm low density lesion in the right lobe of the liver. This likely represents a benign cyst or hemangioma. The gallbladder has been surgically removed. No ductal dilatation. The pancreas and spleen appear normal. The adrenal glands and kidneys appear normal. There is mild wall thickening of the small bowel. This is likely related to gastroenteritis. The colon appears normal. No retroperitoneal or mesenteric lymphadenopathy. The urinary bladder is incompletely distended. No abnormalities are appreciated. The osseous structures appear normal. IMPRESSION: 1. MILD WALL THICKENING OF THE SMALL BOWEL SUGGESTIVE OF ENTERITIS. IF THE PATIENT'S CLINICAL SYMPTOMS PERSIST FOLLOW-UP IMAGING IS RECOMMENDED. 2. INDETERMINATE LOW DENSITY LESION IN THE RIGHT LOBE OF THE LIVER MEASURING 2.5 CM. THIS APPEARS STABLE WHEN COMPARED TO THE PRIOR EXAM DATED 12/05/11. JOB NUMBER: [id number] MTDD
== END 2017-04-12 23:34 | disposition home or self-care (01) ==
LOC: ER 21:12
DX: R10.84 Generalized abdominal pain (principal); R11.2 Nausea with vomiting, unspecified; R19.7 Diarrhea, unspecified
CPT/HCPCS: 99284 ×2; 96360; 96361; 83690; 85025; 80053; 81001; 74177; Q9967; J1980; J7030

== ENCOUNTER 2017-09-25 16:14 | Emergency (ER) | payer MEDICARE, OTHER ==
--- NOTE | 2017-09-25 17:18 | Emergency Department Record ---
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 last tetnus shot one year ago. Onset/Timin -: Hour(s) Place: Work Context: Sharp object use Associated Symptoms: None Treatments Prior to Arrival: Bandage - Related Data Hx Tetanus Toxoid Vaccination: Yes Year of Tetanus Vaccination: 2016 Patient Tetanus UTD (within 5 yrs): Yes Allergies Allergy/AdvReac Type Severity Reaction Status Date / Time diphenhydramine HCl Allergy Severe HYPERSENSIT Verified 04/12/17 21:24 [From Benadryl] IVITY amitriptyline HCl Allergy Intermediate HYPERSENSIT Verified 04/12/17 21:24 [From Elavil] IVITY ketorolac tromethamine Allergy Intermediate sweats Verified 04/12/17 21:24 [From Toradol] nortriptyline HCl Allergy Intermediate sweats Verified 04/12/17 21:24 [From Pamelor] Travel Screening - Travel/Exposure Within Last 30 Days Have you traveled within the last 30 days?: No Review of Systems Reviewed: No additional complaints except as noted below Constitutional: Reports: As per HPI. Denies: Chills, Fever, Malaise, Night sweats, Weakness, Weight change Eyes: Reports: As per HPI. Denies: Eye discharge, Eye pain, Photophobia, Vision change ENT: Reports: As per HPI. Denies: Congestion, Dental pain, Ear pain, Epistaxis , Hearing loss, Throat pain Respiratory: Reports: As per HPI. Denies: Cough, Dyspnea, Hemoptysis, Stridor, Wheezes Cardiovascular: Reports: As per HPI. Denies: Arrhythmia, Chest pain, Dyspnea on exertion, Edema, Murmurs, Orthopnea, Palpitations, Paroxysmal nocturnal dyspnea, Rheumatic Fever, Syncope Endocrine: Reports: As per HPI. Denies: Fatigue, Heat or cold intolerance, Polydipsia, Polyuria Gastrointestinal: Reports: As per HPI. Denies: Abdominal pain, Constipation, Diarrhea, Hematemesis, Hematochezia, Melena, Nausea, Vomiting Genitourinary: Reports: As per HPI. Denies: Dysuria, Frequency, Hematuria, Incontinence, Retention, Testicular pain, Testicular mass, Urgency Musculoskeletal: Reports: As per HPI. Denies: Arthralgia, Back pain, Gout, Joint swelling, Myalgia, Neck pain Skin: Reports: As per HPI. Denies: Bruising, Change in color, Change in hair/ nails, Lesions, Pruritus, Rash Neurological: Reports: As per HPI. Denies: Abnormal gait, Confusion, Headache, Numbness, Paresthesias, Seizure, Tingling, Tremors, Vertigo, Weakness Psychiatric: Reports: As per HPI. Denies: Anxiety, Auditory hallucinations, Depression, Homicidal thoughts, Suicidal thoughts, Visual hallucinations Hematological/Lymphatic: Reports: As per HPI. Denies: Anemia, Blood Clots, Easy bleeding, Easy bruising, Swollen glands Past Medical History - SOCIAL HISTORY Smoking Status: Current every day smoker Alcohol Use: None Drug Use: None - RESPIRATORY Hx Respiratory Disorders: Yes Hx Sleep Apnea: Yes Hx of CPAP: Yes - CARDIOVASCULAR Hx Cardio Disorders: No - NEURO Hx Neuro Disorders: Yes Hx CVA: Yes (2003) Hx Headaches: Yes Hx TIA: Yes Comment:: Closed head injury in 1994 and one in 1992 - GI Hx GI Disorders: Yes Hx Nausea/Vomiting: Yes Hx Ulcer: Yes - Hx Genitourinary Disorders: Yes Hx Kidney Stones: Yes - ENDOCRINE Hx Endocrine Disorders: Yes Hx Diabetes: No Hx Thyroid Disease: Yes - MUSCULOSKELETAL Hx Musculoskeletal Disorders: Yes Hx Arthritis: Yes Hx Back Injury: Yes - PSYCH Hx Psych Problems: Yes Hx Anxiety: Yes Hx Depression: Yes Hx Suicide Attempt: Yes - HEMATOLOGY/ONCOLOGY Hx Hematology/Oncology Disorders: Yes Hx Cancer: Yes (Lymphoma) Hx Chemotherapy: No Hx Radiation Therapy: Yes Comment:: lymphoma hx 2005 Family Medical History Any Significant Family History?: Yes Hx Alcohol Use: Father Hx Anxiety: Brother/Sister Hx Cancer: Father Hx Dementia: Grandparents Hx Depression: Brother/Sister, Grandparents Hx Diabetes: Grandparents Hx Heart Disease: Father Physical Exam - General General Appearance: Alert, Oriented x3, Cooperative, No acute distress - Head Head exam: Normal inspection - Eye Eye exam: Normal appearance, PERRL Pupils: Normal accommodation - ENT ENT exam: Normal exam, Mucous membranes moist, Normal external ear exam, Normal orophraynx, TM's normal bilaterally Ear exam: Normal external inspection. negative: External canal tenderness Nasal Exam: Normal inspection. negative: Discharge, Sinus tenderness Mouth exam: Normal external inspection, Tongue normal Teeth exam: Normal inspection. negative: Dental caries Throat exam: Normal inspection. negative: Tonsillar erythema, Tonsillar exudate - Neck Neck exam: Normal inspection, Full ROM. negative: Tenderness - Respiratory Respiratory exam: Normal lung sounds bilaterally. negative: Respiratory distress - Cardiovascular Cardiovascular Exam: Regular rate, Normal rhythm, Normal heart sounds - GI/Abdominal GI/Abdominal exam: Soft, Normal bowel sounds. negative: Tenderness - Rectal Rectal exam: Deferred - exam: Deferred - Extremities Extremities exam: Normal inspection, Full ROM, Normal capillary refill. negative: Tenderness - Back Back exam: Reports: Normal inspection, Full ROM. Denies: Muscle spasm, Rash noted, Tenderness - Neurological Neurological exam: Alert, Normal gait, Oriented X3, Reflexes normal - Psychiatric Psychiatric exam: Normal affect, Normal mood - Skin Skin exam: Dry, Intact, Normal color, Warm, Other (laceration extensor surface of hand right and no tendon involvement or nerve involment) Course Vital Signs 09/25/17 16:21 Temperature 97.8 F Pulse Rate 104 H Respiratory 14 Rate Blood Pressure 111/90 Pulse Ox 97 - Reevaluation(s) Reevaluation #1: laceration repair 3 inches 1% lidocaine cleaned with shurclense and irrigated 4.0 ethilon times 4 sutures 09/25/17 17:22 09/25/17 17:41 Disposition Clinical Impression: Laceration of hand Qualifiers: Encounter type: initial encounter Foreign body presence: without foreign body Laterality: right Qualified Code(s): S61.411A - Laceration without foreign body of right hand, initial encounter Disposition: Home, Self-Care Condition: (1) Good Instructions: Laceration (ED) Additional Instructions: sutures out in 10 days Forms: Patient Portal Access Time of Disposition: 17:43 Quality - Quality Measures Quality Measures: N/A - Blood Pressure Screening Does Patient Have Any of the Following: No Blood Pressure Classification: Hypertensive Reading Systolic Measurement: 111 Diastolic Measurement: 90 Screening for High Blood Pressure: < Pre-Hypertensive BP, F/U Documented > [ G8950] Pre-Hypertensive Follow-up Interventions: Referral to alternative/primary care provider.
[2017-09-25] MEDS ORDERED: HYDROCODONE/APAP 7.5/325MG TABLET PO ONE (17:43)
== END 2017-09-25 17:52 | disposition home or self-care (01) ==
LOC: ER 16:14
DX: S61.212A Laceration without foreign body of right middle finger without damage to nail, initial encounter (principal); W31.89XA Contact with other specified machinery, initial encounter; Y99.0 Civilian activity done for income or pay
CPT/HCPCS: 12004; 99283

== ENCOUNTER 2017-11-29 18:38 | Emergency (ER) | payer MEDICARE ==
[2017-11-29] MEDS ORDERED: 0.9 % SODIUM CHLORIDE 1,000 ML BAG IV ONE ×2 (18:54→19:32)
[2017-11-29] MEDS ORDERED: PANTOPRAZOLE SODIUM IV 40 MG VIAL IVP ONE (18:54)
[2017-11-29] MEDS ORDERED: ONDANSETRON HCL IV 4 MG/2 ML VIAL IV ONE (18:54)
[2017-11-29] MEDS ORDERED: SUCRALFATE 1 G/10 ML UD PO ONE (18:54)
--- NOTE | 2017-11-29 18:58 | Emergency Department Record ---
History of Present Illness - General Chief Complaint: Back Pain/Injury Stated Complaint: ABD AND BACK PAIN Time Seen by Provider: 11/29/17 18:50 Source: Patient Mode of Arrival: Ambulatory Limitations: No limitations - History of Present Illness Initial Comments: The patient is here due to abdominal pain for 5 days. The pain is mainly in the epigastric area and is an aching gnawing pain. It is present continuously but is made worse after eating. The patient states when he does eat he sometimes vomits after and the pain becomes worse for some time. He also has had some loose stools but denies any blood present. He only has had 2 loose stools a day for the last 2 days. The patient states he has had a hx of pancreatitis like this in the past. He has had his GB removed in the past and he does not drink alcohol. Additionally the patient has had a cough and congestion recently and is taking Amoxicillin for it. MD Complaint: Other Onset/Timin -: Days(s) Similar Symptoms Previously: No Place: Home Severity: Moderate Severity scale (1-10): 8 Quality: Other Consistency: Constant Improves With: None Worsens With: Eating, Movement Context: Unknown Associated Symptoms: Nausea/vomiting - Related Data Previous Rx's Medication Instructions Recorded Doxycycline Monohydrate [Mondoxyne 100 mg PO BID #20 capsule 11/29/17 ] Sucralfate [Carafate] 1 gm PO QID #28 tablet 11/29/17 Allergies Allergy/AdvReac Type Severity Reaction Status Date / Time diphenhydramine HCl Allergy Severe HYPERSENSIT Verified 04/12/17 21:24 [From Benadryl] IVITY amitriptyline HCl Allergy Intermediate HYPERSENSIT Verified 04/12/17 21:24 [From Elavil] IVITY ketorolac tromethamine Allergy Intermediate sweats Verified 04/12/17 21:24 [From Toradol] nortriptyline HCl Allergy Intermediate sweats Verified 04/12/17 21:24 [From Pamelor] Travel Screening - Travel/Exposure Within Last 30 Days Have you traveled within the last 30 days?: No Review of Systems Constitutional: Denies: Chills, Fever Eyes: Denies: Eye discharge ENT: Denies: Congestion Respiratory: Denies: Cough, Dyspnea Cardiovascular: Denies: Chest pain Past Medical History - SOCIAL HISTORY Smoking Status: Heavy tobacco smoker (>10/day) Alcohol Use: None Drug Use: None - RESPIRATORY Hx Respiratory Disorders: Yes Hx Sleep Apnea: Yes Hx of CPAP: Yes - CARDIOVASCULAR Hx Cardio Disorders: No - NEURO Hx Neuro Disorders: Yes Hx CVA: Yes (2003) Hx Headaches: Yes Hx TIA: Yes Comment:: Closed head injury in 1994 and one in 1992 - GI Hx GI Disorders: Yes Hx Nausea/Vomiting: Yes Hx Ulcer: Yes - Hx Genitourinary Disorders: Yes Hx Kidney Stones: Yes - ENDOCRINE Hx Endocrine Disorders: Yes Hx Diabetes: No Hx Thyroid Disease: Yes - MUSCULOSKELETAL Hx Musculoskeletal Disorders: Yes Hx Arthritis: Yes Hx Back Injury: Yes - PSYCH Hx Psych Problems: Yes Hx Anxiety: Yes Hx Depression: Yes Hx Suicide Attempt: Yes - HEMATOLOGY/ONCOLOGY Hx Hematology/Oncology Disorders: Yes Hx Cancer: Yes (Lymphoma) Hx Chemotherapy: No Hx Radiation Therapy: Yes Comment:: lymphoma hx 2005 Family Medical History Any Significant Family History?: Yes Hx Alcohol Use: Father Hx Anxiety: Brother/Sister Hx Cancer: Father Hx Dementia: Grandparents Hx Depression: Brother/Sister, Grandparents Hx Diabetes: Grandparents Hx Heart Disease: Father Physical Exam - General General Appearance: Alert, Oriented x3, Cooperative, No acute distress - Head Head exam: Atraumatic, Normocephalic, Normal inspection - Eye Eye exam: Normal appearance, PERRL - ENT Throat exam: Normal inspection. negative: Tonsillar erythema, Tonsillar exudate - Neck Neck exam: Normal inspection, Full ROM. negative: Tenderness - Respiratory Respiratory exam: Normal lung sounds bilaterally. negative: Respiratory distress - Cardiovascular Cardiovascular Exam: Regular rate, Normal rhythm, Normal heart sounds - GI/Abdominal GI/Abdominal exam: Soft, Tenderness (There is mild diffuse tenderness in all 4 quads increased in the epigastric area.). negative: Guarding, Pulsatile mass, Rebound, Rigid - Extremities Extremities exam: Normal inspection, Full ROM, Normal capillary refill. negative: Tenderness - Neurological Neurological exam: Alert. negative: Motor sensory deficit Course Vital Signs 11/29/17 18:44 Temperature 98.7 F Pulse Rate 105 H Respiratory 20 Rate Blood Pressure 118/84 Pulse Ox 100 - Reevaluation(s) Reevaluation #1: The patient is resting comfortably with no nausea or vomiting or diarrhea. I did explain the CT results to him and the need for F/U. We will redraw a serum Lipase due to no signs of pancreatitis on CT. 11/29/17 20:49 Reevaluation #2: The patient is resting comfortably and denies any new symptoms. On exam his abdomen is very soft and nontender in all 4 quads. I did explain to him that the CT does demonstrate enterocolitis but that is not much different than in the past. The CT does not demonstrate any signs of pancreatitis but he pancreas enzyme Lipase is very mildly elevated. We will treat him with one dose of pain medicines and will discharge him on medicines for his stomach along with an oral Abx for the cough. He is to see his PCP for recheck next week and to return to the ER tomorrow for any worsening symptoms. 11/29/17 21:19 Reevaluation #3: The patient is doing a lot better at this time. He is presently pain free and would like to go home. I again explained the need to stop the Amox. Start the Doxycline and Carafate and see his PCP for a GI referral. 11/29/17 21:33 Medical Decision Making - Data Complexity MDM Data: Labs Ordered and/or Reviewed, X-Ray Ordered and/or Reviewed - Lab Data Result diagrams: 11/29/17 19:00 11/29/17 19:00 - Radiology Data Radiology results: Report reviewed (Abd CT: Distal small bowel and proximal colon wall thickening consistent with enterocolitis. Similar to CT in 2017. No signs of any pancreatitis or SBO. Possible small airway dz L lung base.) Disposition Disposition: Discharge Clinical Impression: Colitis Disposition: Home, Self-Care Condition: (2) Stable Instructions: Pancreatitis (ED) Additional Instructions: Please stop the Amoxicillin and start the Doxycycline and Carafate. Please use Tylenol for pain if needed or your home pain medicines. Also see your family doctor for recheck and to obtain a GI doctor referral. Return to the ER tomorrow for any worsening pain, fever, vomiting or diarrhea. Prescriptions: Doxycycline Monohydrate [Mondoxyne Nl] 100 mg PO BID #20 capsule Sucralfate [Carafate] 1 gm PO QID #28 tablet Forms: Patient Portal Access Time of Disposition: 21:38 Quality - Quality Measures Quality Measures: N/A - Blood Pressure Screening View Details: Yes Does Patient Have Any of the Following: No Blood Pressure Classification: Pre-Hypertensive BP Reading Systolic Measurement: 118 Diastolic Measurement: 84 Screening for High Blood Pressure: < Pre-Hypertensive BP, F/U Documented > [ [id number]] Pre-Hypertensive Follow-up Interventions: Referral to alternative/primary care provider.
[2017-11-29 19:10] LABS: BASO % 0.5 % (0-6); EOS % 3.8 % (0-6); GRAN % 58.9 % (47-80); HEMATOCRIT 43.8 % (42.0-52.0); HEMOGLOBIN 14.7 gm/dl (14.0-18.0); LYMPH % 27.4 % (16-45); MEAN CELL VOLUME 87.1 fl (81-97); MEAN CORPUSCULAR HEMOGLOBIN 29.2 pg (27-33); MEAN CORPUSCULAR HGB CONC 33.6 g/dl (32-36); MEAN PLATELET VOLUME 8.8 fl (7.4-10.4); MONO % 9.4 % (0-9); PLATELET COUNT 483 K/uL (130-400); RED BLOOD COUNT 5.03 M/uL (4.40-5.70); RED CELL DISTRIBUTION WIDTH 13.8 % (11.5-14.5); WHITE BLOOD COUNT W/O DIFF 11.4 K/uL (4.2-12.2)
[2017-11-29 19:11] LABS: URINE APPEARANCE CLOUDY; URINE BILIRUBIN SMALL (NEGATIVE); URINE BLOOD NEGATIVE (NEGATIVE); URINE COLOR ORANGE; URINE GLUCOSE (UA) NEGATIVE (NEGATIVE); URINE KETONE NEGATIVE (NEGATIVE); URINE LEUKOCYTE ESTERASE NEGATIVE (NEGATIVE); URINE NITRITE POSITIVE (NEGATIVE)
[2017-11-29 19:18] LABS: AMPHETAMINE SCREEN URINE NOT DETECTED; BARBITURATE SCREEN URINE NOT DETECTED; BENZODIAZEPINE SCREEN URINE NOT DETECTED; COCAINE SCREEN URINE DETECTED; METHADONE SCREEN URINE NOT DETECTED; METHAMPHETAMINE SCREEN NOT DETECTED; OPIATE SCREEN URINE NOT DETECTED; OXYCODONE SCREEN URINE NOT DETECTED; PHENCYCLIDINE SCREEN URINE NOT DETECTED; PROPOXYPHENE SCREEN URINE NOT DETECTED; THC SCREEN URINE DETECTED; TRICYCLIC ANTIDEPRESSANT SCRN NOT DETECTED
[2017-11-29 19:23] LABS: BLOOD UREA NITROGEN 18 mg/dL (6-20); CREATININE 0.8 mg/dL (0.7-1.2); EST GLOMERULAR FILTRATION RATE > 60 mL/min
[2017-11-29 19:24] LABS: TOTAL PROTEIN 8.7 g/dL (6.6-8.7)
[2017-11-29 19:25] LABS: URINE BACTERIA 1+; URINE EPITHELIAL CELLS 0 - 2 (FEW); URINE RBC NONE SEEN (NONE SEEN); URINE WBC NONE SEEN (0-2/hpf)
[2017-11-29 19:26] LABS: GLUCOSE,RANDOM 101 mg/dL (74-109)
[2017-11-29 19:28] LABS: ALBUMIN 4.1 g/dL (4.0-5.0); ALKALINE PHOSPHATASE 94 U/L (40-129); ALT/SGPT 26 U/L (<41); AST/SGOT 23 U/L (10.0-50.0)
[2017-11-29 19:29] LABS: BILIRUBIN,DIRECT < 0.2 mg/dL (0-0.3); LIPASE 87 U/L (13-60)
[2017-11-29] MEDS ORDERED: MAGNESIUM HYDROXIDE/AL HYDROX 30 ML, LIDOCAINE VISC 2% 200 MG PO ONE ×2 (21:00)
[2017-11-29] MEDS ORDERED: MORPHINE SULFATE 5 MG/ML PFS IVP ONE (21:18)
--- NOTE | 2017-12-01 21:22 | CT SCAN REPORT ---
EXAM: CT SCAN ABDOMEN/PELVIS W CONTRAST HISTORY: ABDOMINAL PAIN RADIATING TO BACK. VOMITING AND DIARRHEA. THIS HAS BEEN PRESENT FOR FIVE DAYS. COMPARISON: 04/12/17. TECHNIQUE: Routine CT images of the abdomen and pelvis obtained following intravenous administration of contrast. Amount and type of contrast in the medical record. FINDINGS: The visualized lingular segment of the left upper lobe as well as the left lower lobe demonstrates tree-in-bud type nodular densities consistent with bronchiolitis/small airways disease. This is a new finding. Similar lesion within the dome right lobe of the liver measuring approximately 2.5 cm size range. Gallbladder is surgically absent. Pancrease, spleen, and adrenals are unremarkable. Kidneys enhance normally with contrast. There is wall thickening involving small bowel loops, primarily ileum consistent with enteritis. Additionally, there is wall thickening and decompression of the proximal half of the colon extending to the mid transverse colon suspicious for colitis. The appendix has a normal appearance. Bladder is unremarkable. Mild free fluid in the pelvis. Aorta enhances normally with contrast. No abdominal or pelvic lymphadenopathy. No free air. Small fat-containing right inguinal hernia. No acute osseous abnormality. IMPRESSION: 1. FINDINGS MOST CONSISTENT WITH ENTEROCOLITIS. MILD FREE FLUID. 2. LEFT BASILAR SMALL AIRWAYS DISEASE/BRONCHIOLITIS. 3. SIMILAR INDETERMINATE 2.5 CM LESION DOME RIGHT LOBE OF THE LIVER, POSSIBLY A HEMANGIOMA. RECOMMEND ULTRASOUND FOR FURTHER ASSESSMENT. JOB NUMBER: [id number] [facility]
== END 2017-11-29 21:45 | disposition home or self-care (01) ==
LOC: ER 18:38
DX: K52.9 Noninfective gastroenteritis and colitis, unspecified (principal); R11.2 Nausea with vomiting, unspecified; R10.84 Generalized abdominal pain; F17.210 Nicotine dependence, cigarettes, uncomplicated
CPT/HCPCS: 99284 ×2; 96374; 96375; 83690; 85025; 80076; 80048; 81001; 80305; 74177; Q9967; J2405; J2270; C9113; J7030